=== PATIENT | male | born 1985 | race Caucasian/White ===

== ENCOUNTER 2017-03-17 13:47 | Emergency (ER) | payer SELFPAY ==
--- NOTE | 2017-03-17 13:49 | PHYS DOC ---
Adult General Chief Complaint Chief Complaint: left eye pain [facility] HPI Patient is a 31 year old male who presents with left eye pain. He states this started on Yared and it's worse when he looks at light. He denies any eye discharge, changes in vision other than squinting Bright light. He is unsure when his last tetanus shot was. He does work around metal shavings. Review of Systems Review of Systems Constitutional: Denies fever or chills [] Eyes: Denies change in visual acuity, redness,, positive for left eye pain HENT: Denies nasal congestion or sore throat [] Respiratory: Denies cough or shortness of breath [] Cardiovascular: No additional information not addressed in HPI [] GI: Denies abdominal pain, nausea, vomiting, bloody stools or diarrhea [] : Denies dysuria or hematuria [] Musculoskeletal: Denies back pain or joint pain [] Integument: Denies rash or skin lesions [] Neurologic: Denies headache, focal weakness or sensory changes [] Endocrine: Denies polyuria or polydipsia [] Physical Exam Physical Exam Constitutional: Well developed, well nourished, no acute distress, non-toxic appearance. [] HENT: Normocephalic, atraumatic, bilateral external ears normal, oropharynx moist, no oral exudates, nose normal. [] Eyes: PERRLA, EOMI, conjunctiva normal, no discharge. Flouroseen stain shows a pinpoint uptake directly on the pupil Neck: Norrmal range of motion, no tenderness, supple, no stridor. [] Cardiovascular:Heart rate regular rhythm, no murmur [] Lungs & Thorax: Bilateral breath sounds clear to auscultation [] Abdomen: Bowel sounds normal, soft, no tenderness, no masses, no pulsatile masses. [] Skin: Warm, dry, no erythema, no rash. [] Back: No tenderness, no CVA tenderness. [] Extremities: No tenderness, no cyanosis, no clubbing, ROM intact, no edema. [] Neurologic: Alert and oriented X 3, normal motor function, normal sensory function, no focal deficits noted. [] Psychologic: Affect normal, judgement normal, mood normal. [] EKG EKG [] Radiology/Procedures Radiology/Procedures [] Impressions: Left eye pain Course & Med Decision Making Course & Med Decision Making Pertinent Labs and Imaging studies reviewed. (See chart for details) His vision is 20/20 each eye and bilaterally. 2 drops of tetracaine was applied and he states it helps slightly but does not resolve his pain completely. Denies any pain in his left eye with light shown in his right eye, but when light is instructed his left eye he does complain of severe pain. He does have a small pinpoint uptake of dye directly over his pupil. Started tell this is possibly a foreign body or an abrasion. This also could be iritis associated with this. Spoke with [facility] is agreeable to seeing the patient in clinic at this time. The patient's tetanus is been updated and he is being sent to the eye clinic for further evaluation and treatment. Dragon Disclaimer Dragon Disclaimer This chart was dictated in whole or in part using Voice Recognition software in a busy, high-work load, and often noisy Emergency Department environment. It may contain unintended and wholly unrecognized errors or omissions. Departure Departure: Impression: Primary Impression: Eye pain Disposition: 05 XFER OTHER Admitting Physician: Arti Zambrano Condition: STABLE Referrals: PCP,NO (PCP) Patient Instructions: Eye - Corneal Abrasion Additional Instructions: I see a small area of concern in your left eye and spoke with [facility] who will see you at this time. There are addressed as [address] [facility] [address] [address] to their office after being discharged from the ER as they are awaiting to evaluate you now. Problem Qualifiers Primary Impression: Eye pain Laterality: left Qualified Codes: H57.12 - Ocular pain, left eye JESSICA LUJAN MD Mar 17, 2017 13:49
[2017-03-17 13:52] VITALS: BP 128/93
[2017-03-17] MEDS ORDERED: FLUORESCEIN 1MG EYE STRIP. ONE (13:56)
[2017-03-17] MEDS ORDERED: TETRACAINE 0.5% OPHTH SOLUTION 4ML BOTTLE. ONE (13:56)
[2017-03-17] MEDS ORDERED: TETRACAINE 0.5% OPHTH SOLUTION 4ML BOTTLE. OS ONE (14:15)
[2017-03-17] MEDS ORDERED: FLUORESCEIN 1MG EYE STRIP. OD ONE (14:15)
[2017-03-17] MEDS ORDERED: DIPHTH,PERTUSS(ACELL),TET TOX 0.5 ML DISP.SYRIN. VAX IM ONE (14:30)
== END 2017-03-17 14:40 | disposition short-term general hospital (02) ==
LOC: ER 13:47
DX: H57.12 Ocular pain, left eye (principal)
CPT/HCPCS: 90471; 90715; 99283-25; 99285-25

== ENCOUNTER 2019-11-18 18:06 | Emergency (ER) | payer SELFPAY ==
[~2019-11-18] VITALS: Ht 175.3 cm; Wt 91.0 kg
[2019-11-18 18:10] VITALS: BP 122/86
--- NOTE | 2019-11-18 18:11 | PHYS DOC ---
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 and the brake caliper slipped and hit the back of my Lt. hand.... This happened about 1 but my hand is still hurting... " Patient is a 34 year old male who presents with above hx and complaints of Lt. hand contusion and pain in index, middle and proximal meta phalange areas of Lt hand.. Patient still has some erythema and swelling in this area. Ring was removed from Lt. hand. Distal neurovascular appears to be equal to right hand. No upper more arm tenderness. Patient is right-hand dominant. Patient is normally healthy. No recent travel outside the [place] area. No specific ill contacts. Patient does smoke. Review of Systems: Review of Systems: Constitutional: Denies fever or chills Eyes: Denies change in visual acuity HENT: Denies nasal congestion or sore throat Respiratory: Denies cough or shortness of breath Cardiovascular: Denies chest pain or edema GI: Denies abdominal pain, nausea, vomiting, bloody stools or diarrhea : Denies dysuria Musculoskeletal: Complains of left hand injury Integument: Denies rash Neurologic: Denies headache, focal weakness or sensory changes . Endocrine: Denies polyuria or polydipsia Lymphatic: Denies swollen glands Psychiatric: Denies depression or anxiety Heart Score: Risk Factors: Risk Factors: DM, Current or recent (<one month) smoker, HTN, HLP, family history of CAD, obesity. Risk Scores: Score 0 - 3: 2.5% MACE over next 6 weeks - Discharge Home Score 4 - 6: 20.3% MACE over next 6 weeks - Admit for Clinical Observation Score 7 - 10: 72.7% MACE over next 6 weeks - Early Invasive Strategies Family History: Family History: Noncontributory to presentation Current Medications: Current Meds: See nursing for home meds Allergies: Allergies: Allergies Coded Allergies Type Severity Reaction Last Updated Verified No Known Drug Allergies 03/17/17 No Physical Exam: PE: Constitutional: Well developed, well nourished, moderate acute distress, non- toxic appearance. [] HENT: Normocephalic, atraumatic, bilateral external ears normal, oropharynx moist, no oral exudates, nose normal. [] Eyes: PERRLA, EOMI, conjunctiva normal, no discharge. [] Neck: Normal range of motion, no tenderness, supple, no stridor. [] Cardiovascular:Heart rate regular rhythm, no murmur [] Lungs & Thorax: Bilateral breath sounds equal apex with few scattered wheezes on auscultation [] Abdomen: Bowel sounds normal, soft, no tenderness, no masses, no pulsatile masses. [] Skin: Warm, dry, no erythema, no rash. [] Back: No tenderness, no CVA tenderness. [] Extremities: No tenderness, no cyanosis, no clubbing, ROM intact, no edema. Except findings in left hand as per HPI Neurologic: Alert and oriented X 3, normal motor function, normal sensory function, no focal deficits noted. [] Psychologic: Affect normal, judgement normal, mood normal. [] EKG: EKG: [] Radiology/Procedures: Radiology/Procedures: [place] [address] IMAGING REPORT Signed PATIENT: MIKE RAMIREZCOUNT: [id number] : 1985 LOCATION: ER AGE: 34 SEX: M EXAM STATUS: REG ER ORD. PHYSICIAN: GINNY CHAPPELL MD REASON: Injury to left hand, pain PROCEDURE: HAND LEFT 3V HAND LEFT 3V 11/18/2019 6:14 PM INDICATION: Injury to the left hand, pain COMPARISON: None available. TECHNIQUE: 3 views the left hand are provided. FINDINGS/ IMPRESSION: There is no acute fracture or dislocation. Joint spaces are maintained. Bone mineralization is within normal limits. Regional soft tissues are within normal limits. There is no soft tissue gas or osseous erosion. No radiopaque foreign body. Electronically signed by: Maty New MD (11/18/2019 7:05 PM) [address] [address] IMAGING REPORT Signed PATIENT: MIKE RAMIREZ JACCOUNT: [id number] : 1985 LOCATION: ER AGE: 34 SEX: M EXAM STATUS: REG ER ORD. PHYSICIAN: GINNY CHAPPELL MD REASON: Injury to left hand, pain PROCEDURE: HAND LEFT 3V HAND LEFT 3V 11/18/2019 6:14 PM INDICATION: Injury to the left hand, pain COMPARISON: None available. TECHNIQUE: 3 views the left hand are provided. Course & Med Decision Making: Course & Med Decision Making Pertinent Labs and Imaging studies reviewed. (See chart for details) Patient is ice packs as needed. Patient keep hand elevated. Patient take Tylenol ibuprofen for pain. Patient follow-up work comp. Patient return if any concerns. Gui wrap. Distal neurovascular intact after application of Gui wrap. Impression: 1. Left hand contusion [] Dragon Disclaimer: Dragon Disclaimer: This electronic medical record was generated, in whole or in part, using a voice recognition dictation system. Departure Departure: Disposition: 01 HOME/RESIDENCE PRIOR TO ADM Condition: STABLE Referrals: PCP,NO (PCP) [place] Disclaimer This chart was dictated in whole or in part using Voice Recognition software in a busy, high-work load, and often noisy Emergency Department environment. It may contain unintended and wholly unrecognized errors or omissions. GINNY CHAPPELL MD November 18, 2019 18:11
--- NOTE | 2019-11-18 19:08 | RAD ---
HAND LEFT 3V 11/18/2019 6:14 PM INDICATION: Injury to the left hand, pain COMPARISON: None available. TECHNIQUE: 3 views the left hand are provided. FINDINGS/ IMPRESSION: There is no acute fracture or dislocation. Joint spaces are maintained. Bone mineralization is within normal limits. Regional soft tissues are within normal limits. There is no soft tissue gas or osseous erosion. No radiopaque foreign body. Electronically signed by: Maty New MD (11/18/2019 7:05 PM) [facility]
== END 2019-11-18 19:24 | disposition home or self-care (01) ==
LOC: ER 18:06
DX: S60.222A Contusion of left hand, initial encounter (principal); F17.210 Nicotine dependence, cigarettes, uncomplicated; W22.8XXA Striking against or struck by other objects, initial encounter; Y93.89 Activity, other specified; Y92.89 Other specified places as the place of occurrence of the external cause; Y99.8 Other external cause status
CPT/HCPCS: 73130; 99283

== ENCOUNTER 2021-10-04 21:04 | Emergency (ER) | payer SELFPAY ==
[~2021-10-04] VITALS: Ht 175.3 cm; Wt 91.0 kg
[2021-10-04 21:14] VITALS: BP 136/83
--- NOTE | 2021-10-04 21:39 | PHYS DOC ---
Past History Past Medical History: No Pertinent History Additional Past Medical Histor: vertigo Past Surgical History: No Surgical History Smoking: Cigarettes Alcohol Use: Rarely Drug Use: None General Adult EDM: Chief Complaint: FOOT INJURY PAIN HPI: HPI: 36-year-old male presents with right foot pain. The patient dropped a transmission on his foot earlier today. He has pain throughout the top of his foot and it is starting to get bruised. He is concerned for fracture. He denies any other injuries at this time. Review of Systems: Review of Systems: Constitutional: Denies fever or chills Eyes: Denies change in visual acuity HENT: Denies nasal congestion or sore throat Respiratory: Denies cough or shortness of breath Cardiovascular: Denies chest pain or edema GI: Denies abdominal pain, nausea, vomiting, bloody stools or diarrhea : Denies dysuria Musculoskeletal: Right foot pain Integument: Denies rash Neurologic: Denies headache, focal weakness or sensory changes Endocrine: Denies polyuria or polydipsia Lymphatic: Denies swollen glands Psychiatric: Denies depression or anxiety Allergies: Allergies: Allergies Uncoded Allergies Type Severity Reaction Last Updated Verified No opioid medications Adverse Reaction Intermediate 10/04/21 Physical Exam: PE: Constitutional: Well developed, well nourished, no acute distress, non-toxic appearance. [] HENT: Normocephalic, atraumatic, bilateral external ears normal, oropharynx moist, no oral exudates, nose normal. [] Eyes: PERRLA, EOMI, conjunctiva normal, no discharge. [] Neck: Normal range of motion, no tenderness, supple, no stridor. [] Cardiovascular: Heart rate regular rhythm, no murmur [] Lungs & Thorax: Bilateral breath sounds clear to auscultation [] Abdomen: Bowel sounds normal, soft, no tenderness, no masses, no pulsatile masses. [] Skin: Warm, dry, no erythema, no rash. [] Back: No tenderness, no CVA tenderness. [] Extremities: Tenderness of the superior right foot, mild ecchymosis, no obvious deformity. [] Neurologic: Alert and oriented X 3, normal motor function, normal sensory function, no focal deficits noted. [] Psychologic: Affect normal, judgement normal, mood normal. [] Current Patient Data: Vital Signs: Vital Signs Date Time Temp Pulse Resp B/P (MAP) Pulse Ox O2 Delivery O2 Flow Rate FiO2 10/04/21 21:14 98.2 89 16 136/83 (100) 98 EKG: EKG: [] Radiology/Procedures: Radiology/Procedures: [] Impressions: RIGHT FOOT AP LATERAL OBLIQUE Clinical Indication: Reason: direct blow with heavy part / Comparison: None. Findings: There is no acute fracture or dislocation. The bony alignment is normal. Mineralization is normal. No bony erosion. There is no soft tissue abnormality. IMPRESSION: No acute fracture. Electronically signed by: Monty Ramírez MD (10/04/2021 10:14 PM) [facility] DICTATED AND SIGNED BY: MONTY RAMÍREZ MD DATE: 10/04/212210 CC: ALINE ADKINS DO; BABAR MAY DO ~ Heart Score: C/O Chest Pain: N/A Risk Factors: Risk Factors: DM, Current or recent (<one month) smoker, HTN, HLP, family history of CAD, obesity. Risk Scores: Score 0 - 3: 2.5% MACE over next 6 weeks - Discharge Home Score 4 - 6: 20.3% MACE over next 6 weeks - Admit for Clinical Observation Score 7 - 10: 72.7% MACE over next 6 weeks - Early Invasive Strategies Course & Med Decision Making: Course & Med Decision Making Pertinent Labs and Imaging studies reviewed. (See chart for details) The patient does not have a fracture. This is just a contusion. He does not want narcotic pain medication. We have given him naproxen and advised further supportive care such as rest, ice and [id number] medications. He is stable for discharge at this time. [] Dragon Disclaimer: Dragon Disclaimer: This electronic medical record was generated, in whole or in part, using a voice recognition dictation system. Departure Departure: Impression: Primary Impression: Foot contusion Disposition: HOME / SELF CARE / HOMELESS Condition: STABLE Referrals: BABAR MAY DO (PCP) Patient Instructions: Foot Contusion, [id number] ALINE ADKINS DO Oct 04, 2021 21:39
[2021-10-04] MEDS ORDERED: NAPROXEN 500 MG TABLET PO ONE (21:45)
--- NOTE | 2021-10-04 22:16 | RAD ---
RIGHT FOOT AP LATERAL OBLIQUE Clinical Indication: Reason: direct blow with heavy part / Comparison: None. Findings: There is no acute fracture or dislocation. The bony alignment is normal. Mineralization is normal. N o bony erosion. There is no soft tissue abnormality. IMPRESSION: No acute fracture. Electronically signed by: Monty Villagomez MD (10/04/2021 10:14 PM) [facility]
== END 2021-10-04 22:51 | disposition home or self-care (01) ==
LOC: ER 21:04
DX: S90.31XA Contusion of right foot, initial encounter (principal); F17.210 Nicotine dependence, cigarettes, uncomplicated; W20.8XXA Other cause of strike by thrown, projected or falling object, initial encounter; Y93.89 Activity, other specified; Y92.89 Other specified places as the place of occurrence of the external cause; Y99.8 Other external cause status
CPT/HCPCS: 73630; 99283